=== PATIENT | female | born 1975 | race Hispanic/Latino ===

== ENCOUNTER 2019-04-03 06:10 | Day surgery (SDC) | payer OTHER ==
[2019-03-23 09:24] VITALS: BMI 25.0
[2019-04-03] MEDS ORDERED: ePHEDrine 50 mg/ml Inj ONE (07:23)
[2019-04-03] MEDS ORDERED: Propofol 10 mg/ml Inj (20 ML) ONE (07:23)
[2019-04-03] MEDS ORDERED: Rocuronium 10 mg/ml (5 ml) ONE (07:24)
[2019-04-03] MEDS ORDERED: Midazolam 2 MG/2 ML VIAL ONE (07:24)
[2019-04-03] MEDS ORDERED: Lidocaine 4% (Laryng-O-Jet) Kit MM ONE (07:25)
[2019-04-03] MEDS ORDERED: Lactated Ringer's 1,000 ML IV ONE ×2 (07:50→08:00)
[2019-04-03] MEDS ORDERED: Succinylcholine 200 mg/10 ml Inj IV ONE (07:52)
[2019-04-03] MEDS: Bupivacaine 0.5% Inj(30mL) ONE ×2 (08:16→08:35)
[2019-04-03] MEDS ORDERED: Dexamethasone 4 mg/1 ml ONE (08:33)
[2019-04-03] MEDS ORDERED: Sevoflurane - Inhalation Anesthetic Liq (250 ml) ONE (08:34)
[2019-04-03] MEDS ORDERED: Vasopressin 20 Units/ml Inj ONE (08:41)
[2019-04-03] MEDS ORDERED: Neostigmine 1:1000 (1 mg/ml) Inj ONE (08:58)
[2019-04-03] MEDS ORDERED: HYDROmorphone 0.5 mg/0.5 ml ISec IVP PRN (09:40)
[2019-04-03] MEDS ORDERED: Lactated Ringer's 1,000 ML IV SCH (09:45)
[2019-04-03] MEDS ORDERED: Oxycodone/Acetaminophen 5/325 mg Tab PO PRN (10:49)
[2019-04-03 12:38] VITALS: BP 110/68; PULSE 72; RESP 18; TEMP 98; O2SAT 100
--- NOTE | 2019-04-03 14:27 | CP.SDSHP ---
Same Day Surgery H & P - Allergies Allergies: Allergies No Known Allergies Allergy (Verified 03/23/19 09:24) - Physical Exam Vital Signs: Vital Signs 04/03/19 04/03/19 04/03/19 07:03 09:35 09:50 Temperature 98.5 F 96.8 F L 97.0 F L Pulse Rate 70 91 H 73 Respiratory 18 18 18 Rate Blood Pressure 107/60 135/58 L 119/68 O2 Sat by Pulse 99 100 100 Oximetry 04/03/19 04/03/19 04/03/19 10:05 10:20 10:35 Temperature 97.2 F L 97.5 F L Pulse Rate 75 80 76 Respiratory 20 20 20 Rate Blood Pressure 112/60 110/63 108/70 O2 Sat by Pulse 100 100 100 Oximetry 04/03/19 04/03/19 04/03/19 11:05 11:35 11:45 Temperature 97.6 F 98.1 F Pulse Rate 77 71 Respiratory 18 20 Rate Blood Pressure 112/68 109/65 O2 Sat by Pulse 100 99 99 Oximetry 04/03/19 04/03/19 11:50 12:37 Temperature 97.7 F 98 F Pulse Rate 85 72 Respiratory 18 18 Rate Blood Pressure 121/53 L 110/68 O2 Sat by Pulse 100 100 Oximetry Short Stay Discharge - Short Stay Discharge Admitting Diagnosis/Reason for Visit: N83.209/ D25.9/ Progress Note/Discharge Note with Instructions: doing well diagnostic laparoscopy f/u one week NPV no heavy lifing
--- NOTE | 2019-04-04 12:00 | OP ---
PROCEDURE DATE: 04/03/19 PREOPERATIVE DIAGNOSES: Fibroid uterus, endometriomas, pelvic pain. POSTOPERATIVE DIAGNOSES: Fibroid uterus, endometriomas, pelvic pain. OPERATION PERFORMED: Diagnostic laparoscopy, cystoscopy with temporary stent placement. SURGEON: Aniyah Gallegos MD TYPE OF ANESTHESIA: General. ANESTHESIA ADMINISTERED BY: Anastasiya Bermudez MD ESTIMATED BLOOD LOSS: Minimal. IV FLUID INTAKE: The patient received approximately 1000 mL of D5 LR intraoperatively. URINE OUTPUT: Ovalle catheter put out approximately 200 mL of clear urine. DESCRIPTION OF PROCEDURE: After informed consent was obtained, the patient was taken to the operating room. She was given general anesthesia. She was then prepped and draped in a normal sterile fashion with left foot toe. After informed consent was obtained, the patient was taken to the operating room where she was given general anesthesia. She was then prepped and draped in a normal sterile fashion. Attention was then turned to the urethra where a cystoscope was inserted in the bladder. The right ureter was identified, stented, and 5 mL of ICG green was injected. Attention was then turned to the right ureter which in similar fashion was stented with a 5-Sinhala catheter and ICG green was injected. Cystoscope was then removed from the bladder. A speculum was inserted in the vagina. Cervix was visualized, grasped with a single tooth tenaculum. Cervix was then gently dilated. A HUMI uterine manipulator was inserted in the uterine cavity. Attention was then turned to approximately 3 cm superior to the umbilicus. Marcaine was infused. An 8 mm incision was made and a robotic port was introduced to the abdominal cavity. An 8 mm incision was made. A Veress needle was inserted to the abdomen. The abdomen was then insufflated to 20 mmHg. The Veress needle was removed and a robotic port was introduced to the abdominal cavity. Laparoscope was inserted and placement was confirmed. The abdomen was then surveyed. There was extensive endometriosis in the anterior cul-de-sac. There were two large bilateral endometriomas. There was endometriosis noted along the liver. At that point, consultation was made with oil well shooter. The procedure was terminated secondary to extensive disease and no bowel prep for the patient so the patient will be rescheduled with general surgeon. Aniyah Gallegos MD
== END 2019-04-03 12:45 | disposition home or self-care (01) ==
LOC: H.OPSURG 06:10
PROVIDERS: ATTEND Obstetrics & Gynecology Gynecology
DX: N83.209 Unspecified ovarian cyst, unspecified side (principal); D25.9 Leiomyoma of uterus, unspecified; R10.2 Pelvic and perineal pain
CPT/HCPCS: 36415; 49320; 52332; 86850; 86900; C1729; J0330; J0690; J1100; J2001; J2250; J2405; J2704; J2710; J3010; J7120

== ENCOUNTER 2019-04-09 06:05 | Observation (INO) | payer OTHER ==
[2019-04-09 06:30] VITALS: BMI 23.8
[2019-04-09] MEDS ORDERED: Lactated Ringer's 1,000 ML IV ONE ×3 (06:48→09:00)
[2019-04-09] MEDS ORDERED: Bupivacaine 0.5% Inj(30mL) ONE (07:11)
[2019-04-09] MEDS ORDERED: Propofol 10 mg/ml Inj (20 ML) ONE (07:29)
[2019-04-09] MEDS ORDERED: ePHEDrine 50 mg/ml Inj ONE (07:30)
[2019-04-09] MEDS ORDERED: Midazolam 2 MG/2 ML VIAL ONE (07:30)
[2019-04-09] MEDS ORDERED: Rocuronium 10 mg/ml (5 ml) ONE ×2 (07:31→08:45)
[2019-04-09] MEDS ORDERED: Lidocaine 4% (Laryng-O-Jet) Kit MM ONE (07:31)
[2019-04-09] MEDS ORDERED: Succinylcholine 200 mg/10 ml Inj IV ONE (07:35)
[2019-04-09] MEDS ORDERED: Dexamethasone 4 mg/1 ml ONE (08:42)
[2019-04-09] MEDS: Vasopressin 20 Units/ml Inj ONE ×2 (10:11→10:25)
[2019-04-09] MEDS ORDERED: Sevoflurane - Inhalation Anesthetic Liq (250 ml) ONE (10:31)
[2019-04-09] MEDS ORDERED: Neostigmine 1:1000 (1 mg/ml) Inj ONE (11:28)
[2019-04-09] MEDS ORDERED: DiphenhydrAMINE 50 mg/ml Inj IVP PRN (12:14)
[2019-04-09] MEDS ORDERED: Droperidol 2.5 mg/ml Inj IVP PRN (12:14)
[2019-04-09] MEDS: HYDROmorphone 0.5 mg/0.5 ml ISec IVP PRN ×3 (12:50→14:45)
[2019-04-09] MEDS ORDERED: Oxycodone/Acetaminophen 5/325 mg Tab PO PRN (15:05)
[2019-04-09] MEDS ORDERED: Sodium Chloride 0.9% 1,000 ML IV SCH (15:15)
[2019-04-09] MEDS: Lactated Ringer's 1,000 ML IV SCH (20:15)
[2019-04-10] MEDS: Lactated Ringer's 1,000 ML IV SCH (04:15)
[2019-04-10 07:09] LABS: MEAN CELL VOLUME 88.1 fl (81.0-99.0); MEAN CORPUSCULAR HEMOGLOBIN 29.9 pg (27.0-31.0); RBC 3.35 Mil/uL (3.80-5.20); RED CELL DISTRIBUTION WIDTH 13.1 % (11.5-14.5); WHITE BLOOD COUNT 6.8 K/uL (4.8-10.8)
--- NOTE | 2019-04-11 03:32 | OP ---
PROCEDURE DATE: 04/09/2019 PROCEDURES: Robotic myomectomy, robotic resection of endometriosis, robotic cystectomy, removal of diaphragmatic endometriosis, removal of pericardial endometriosis. SURGEONS: Aniyah Gallegos MD; Eh Mcclellan MD; and Tobi Berg MD My portion of the procedure was robotic myomectomy, cystoscopy with stent placement. OPERATIVE FINDINGS: A 16-week uterus with multiple fibroids, ovaries adherent to the posterior uterine wall, obliteration of the cul-de-sac secondary to extensive endometriosis. Endometriosis noted along the anterior bladder reflection. Endometriosis noted in the diaphragmatic region and the pericardial region. ESTIMATED BLOOD LOSS: 200 mL. FLUIDS: The patient received approximately 1800 mL of D5 LR intraoperatively. URINE OUTPUT: 600 mL of clear urine. DESCRIPTION OF PROCEDURE: After informed consent was obtained, the patient was taken to the operating room where she was placed in a dorsal supine position. The patient was given general anesthesia. She was prepped and draped in a normal sterile fashion, placed in the [facility]. Attention was then turned to the urethra where cystoscope was inserted. The right ureter was identified and stented with a 5-Somali catheter. 5 mL of ICG-Green was injected. Similar procedure was performed on the left. Attention was then turned to the vagina where speculum was inserted. The cervix was visualized, grasped with a single-tooth tenaculum. The cervix was gently dilated and a Valtchev uterine manipulator was inserted in the uterine cavity as a means to manipulate the uterus. Ovalle catheter was then inserted into the bladder to monitor the patient's urinary output. Attention was then turned to the abdomen where a infraumbilical incision was made. The abdomen was tented upward, a Veress needle was inserted and the abdomen was then insufflated to approximately 20 mmHg. A robotic port was then introduced into the abdominal cavity and placement was confirmed with laparoscope. The abdomen was then surveyed with the findings noted above. An additional robotic port was placed approximately 5 cm superior to the anterior iliac crest. Marcaine was infused. A 5-mm incision was made and robotic port was introduced under direct visualization. A similar procedure was performed on the left. A 12-mm robotic port was introduced approximately 10 cm left and lateral to the umbilicus. Marcaine was infused. The port was placed under direct visualization. The patient was then placed in steep Trendelenburg. The robot was brought along the patient's side and docked without complication. The instruments used for the surgery were a PK dissector, Markel SutureCut, scissors. Dr. Berg approached the surgical console. This portion of the case will be dictated. Synopsis, he performed the bilateral cystectomy. He mobilized the ovaries away from the uterus. He mobilized the rectum from the posterior aspect of the uterus and resected the endometriosis out from the cul-de-sac. Once procedure was terminated, we could proceed with the myomectomy and I will dictate that portion. When I approached the surgical console, there was a 5-mm prominent fundal myoma noted. The uterine serosa was then scored with the Hot Pillo. The fibroid was identified, grasped with the tenaculum and enucleated using both sharp and blunt dissection. The uterine defect was then repaired with 2-0 on a barbed suture. We then proceeded anteriorly in a similar fashion. Additional fibroid was identified. It was scored with the scissors. The fibroid was identified, grasped with the tenaculum and enucleated without difficulty. The uterine defect was then repaired with 2-0 Vicryl and hemostasis was noted. Upon completion of my procedure, Dr. Eh Mcclellan resumed the console and this portion of the case will be dictated. Upon completion of Dr. Mcclellan's portion, the patient was undocked from the robot successfully. All instruments were removed from the abdomen. The 12-mm cyst port was closed with 0 Vicryl. The infraumbilical incision was repaired with 0 Vicryl and the 8-mm incision was repaired with 3-0 Biosyn and Dermabond. All sponge, lap, needle and instrument counts were correct x2. The patient was taken to the recovery room in awake and stable condition. Aniyah Gallegos MD
--- NOTE | 2019-04-11 08:02 | CP.SDSHP ---
Same Day Surgery H & P - Allergies Allergies: Allergies No Known Allergies Allergy (Verified 04/09/19 16:29) as per pt - Physical Exam Vital Signs: Vital Signs 04/11/19 03:00 Temperature 98.2 F Pulse Rate 81 Respiratory 20 Rate Blood Pressure 103/60 O2 Sat by Pulse 99 Oximetry Short Stay Discharge - Short Stay Discharge Admitting Diagnosis/Reason for Visit: N83.209/D25.9 Progress Note/Discharge Note with Instructions: doing well ambulating tolerating diet vss afebrile abd soft ntnd ext no homabs d/c home f/u in one week npv
[2019-04-11 09:48] VITALS: BP 115/64; PULSE 89; RESP 16; TEMP 97.9; O2SAT 98
--- NOTE | 2019-04-14 18:02 | PCM.OP ---
Operative Report - Operative Report Date of Surgery/Procedure: 04/09/19 Time of Surgery/Procedure: 08:00 Surgeon: Tobi Berg MD Overnight Babysitter: Aniyah Gallegos MD , Eh Mcclellan MD Anesthesia/Sedation: Anastasiya Bermudez MD Pre-Operative Diagnosis: stage 4 endometriosis , bilateral ovarian endometriomas, bilateral hydroureters Post-Operative Diagnosis: stage 4 endometriosis , bilateral ovarian endometriomas, bilateral hydroureters Indication for Surgery: i was called in to assist dr Gallegos who was adressign complex surgical findings related to the patient's very extensive disease Operative Findings: stage 4 endometriosis , obliterated cul de sac , anterior rectal sdhesions, bilateral massive ovarian edometriomas. Procedure/Operation Description: The [employer] Dario Robot was already docked so we took control of the console At this point, we proceeded with a left ureterolysis. The ureter appeared to be dilated and was clearly identified utilizing IC-Green fluorescent technology. Anesthesia was made in the peritoneum at the top of the pelvic brim, and the incision was then carried down all the way opening the peritoneum all the way down from the pelvic brim, all the way down to the ovarian fossa, extending the incision below the ovary. It was a progressive dissection where the ureter was progressively lateralized and peritoneum was medialized, thus freeing the ureter all the way down to the cross of the uterine vessels. After this was done, the ureter was freed and lateralized, and a larger peritoneum which had been opened, was excised, and sent to pathology. At this point, with the aid of very slow process, I was able to elevate the ovary and proceed with ovariolysis. At this point, we proceeded with a left ovariolysis and ovarian cystectomy The left ovary was adherent to the posterior aspect of the uterus. It was gently dissected in a step by step way. It was peeled off, the ovarian fossa, andan area of extensive fibrosis and endometriosis was exposed. At this point after draining the cyst without spillage , the cyct wall was gently peeled off and removed , placed in an endo bag and removed frm the body. At this point, we proceeded with a right ureterolysis. The ureter was identified again utilizing fluorescent technology on the right hand side and retroperitoneal space was entered, and a full dissection was performed,entering the retroperitoneal space and dissecting the ureter, removing the ureter laterally and the peritoneum medially. A full dissection was performed all the way down to the ovarian fossa and the crossing of the uterine arteries. An area of peritoneum containing endometriosis was dissected and sent to Pathology. At this point, we proceeded with a right ovariolysis and ovarian cystectomy The left ovary was adherent to the posterior aspect of the uterus. It was gently dissected in a step by step way. It was peeled off, the ovarian fossa, andan area of extensive fibrosis and endometriosis was exposed. At this point after draining the cyst without spillage , the cyct wall was gently peeled off and removed , placed in an endo bag and removed frm the body. At this point, we proceeded with treatment of endometriosis and excision of endometriosis. On the left hand side, fibrosis, especially in the left ovarian fossa was excised. In a very progressive step by step fashion, we dissected off fibrosis containing endometriosis and freed up the whole area. The ureters which had been lateralized. Areas of fibrosis and endometriosis were also identified in the posterior cul-de-sac and in the rectovaginal space which was also affected with endometriosis and fibrosis. At this point, we proceeded with the excision of perirectal endometriosis. The rectovaginal area had significant fibrosis and additional endometriosis was dissected from the posterior aspect of the uterus, and the rectovaginal space was entered at the level of the peritoneal reflection. All this done making sure that no damage to the rectum was performed. At this point, endometriosis was also excised from the right uterosacral area which also was affected by fibrosis and endometriosis. Estimated Blood Loss: 200 cc Blood Replaced: none Sponge/Instrument Count: correct at end of procedure Drains: none Complications: none Specimen: multiplesent to pathology , bilateral ovarian cysts and multiple endometriosis nodules excised Discharge & Condition: excellent
--- NOTE | 2019-04-15 10:17 | OP ---
OPERATIVE REPORT -Operative Report Date of Procedure: 04/09/2019 Surgeon: Eh Mcclellan MD Manager Molecular: Aniyah Gallegos MD, Tobi Berg MD Anesthesiologist: Anastasiya Bermudez MD Anesthesia: General Endo Pre-op Diagnosis: Endometriosis of the diaphragm Post-op Diagnosis: same Procedure/Operation Description: Excision of diaphragm endometriosis with complex repair Brief History: This 44 year old woman was already brought to the operating room by Dr. Jacques when he requested an intraoperative surgical consultation for diaphragm involvement with endometriosis. Description of the Procedure: The robotic consult was then appropriately placed and the lesion in question was excised using gentle traction and dissection with letter cautery. The first lesion was incised circumferentially and relieved from the diaphragm using the above technique. This lesion was separately marked and sent to pathology as a separate specimen. The second lesion was then desiccated with ultra cautery. And the third lesion was excised in a similar manner en bloc, properly marked and sent to pathology as separate specimen. Hemostasis was deemed adequate at this point. The operation was then turned over to Dr. abbott (separate dictation Dr. Gallegos). Estimated Blood Loss:__cc Complications: none Specimen: Abdominal wall endometreosis Discharge & Condition: stable [facility]
== END 2019-04-11 13:07 | disposition home or self-care (01) ==
LOC: H.OPSURG 06:05 → H.PEDS 12:37 → INTOOBSV 12:37
PROVIDERS: ADMIT Obstetrics & Gynecology Gynecology; ATTEND Obstetrics & Gynecology Gynecology
DX: N80.1 Endometriosis of ovary (principal); N80.3 Endometriosis of pelvic peritoneum; N80.0 Endometriosis of uterus; N13.4 Hydroureter
CPT/HCPCS: 36415; 53899; 58140; 58662; 85027; 86850; 86900; 86920; 88305; 96374; 96376; C1729; G0378; J0330; J0690; J1100; J1170; J1885; J2001; J2250; J2405; J2704; J2710; J2765; J3010; J7120; S2900